=== PATIENT | male | born 1990 | race Caucasian/White ===

== ENCOUNTER 2018-02-08 08:47 | Emergency (ER) | payer MEDICAID, OTHER ==
[2018-02-08] MEDS ORDERED: NS 1,000 ML IV ONE (09:49)
--- NOTE | 2018-02-08 09:54 | EDPHY ---
H & P Time Seen by Provider: 02/08/18 09:14 HPI/ROS: CHIEF COMPLAINT: Flank pain, vomiting, urinary retention HISTORY OF PRESENT ILLNESS: 27-year-old male presents to the emergency department with left flank pain that began abruptly earlier this morning. The patient initially thought that it was more of a muscular type spasm and his girlfriend who is at bedside was trying to massage the area which made the pain acutely worse. He describes it as a sharp pain. He began vomiting. He felt like he was going to pass out. He was then having some pain in his left lower abdomen. He denies radicular symptoms in his lower legs. Denies testicular pain. He states the has not urinated today which is unusual for him. No fevers or chills. No reported trauma. No chest pain or difficulty breathing. His pain is worse with movement. REVIEW OF SYSTEMS: Constitutional: No fever, no chills. Eyes: No double or blurry vision. ENT: No sore throat. Respiratory: No cough, no shortness of breath. Cardiac: No chest pain. Gastrointestinal: Vomiting, abdominal pain as above. No diarrhea. Genitourinary: No dysuria. Musculoskeletal: Left flank pain. No neck pain. Skin: No rashes. Neurological: No headache. Past Medical/Surgical History: PTSD, traumatic brain injury, multiple concussions, epilepsy Social History: Single Smoking Status: Never smoked Physical Exam: General Appearance: Alert, no distress. Eyes: Pupils equal and round. Extraocular motions are all intact. ENT: Mouth: Mucous membranes moist. Respiratory: No wheezing, rhonchi, or rales, lungs are clear to auscultation. Cardiovascular: Regular rate and rhythm. Gastrointestinal: Abdomen is soft. He has tenderness with palpation in the left lower quadrant. There is no masses, rebound or guarding noted. Positive CVA tenderness on the left, none on the right. Neurological: Alert and oriented x 3, cranial nerves II through XII grossly intact Skin: Warm and dry, no rashes. Musculoskeletal: Nontender to palpate along the cervical, thoracic or lumbar spine. Neck is supple. Extremities: Full range of motion and no peripheral edema. Straight leg raise is negative bilaterally. He is able to flex his knees towards his chest without difficulty. He has pain with trying to sit up in bed and trying to roll over to his right side. Psychiatric: Patient is oriented X 3, there is no agitation. Constitutional: Initial Vital Signs Temperature (C) 36.5 C 02/08/18 09:06 Heart Rate 95 02/08/18 09:06 Respiratory Rate 16 02/08/18 09:06 Blood Pressure 114/84 H 02/08/18 09:06 O2 Sat (%) 98 02/08/18 09:06 O2 Delivery Mode Room Air O2 (L/minute) 36.5 Allergies/Adverse Reactions: cephalexin [From Keflex] Allergy (Verified 02/08/18 09:05) Home Medications: Medication Instructions Recorded Diazepam [Valium] 5 mg PO TIDPRN PRN #11 tab 02/08/18 Ibuprofen 600 mg PO TID PRN #30 tablet 02/08/18 Lamotrigine 02/08/18 VYVANSE 02/08/18 Wellbutrin Xl 02/08/18 Medical Decision Making ED Course/Re-evaluation: 27-year-old male presents to the emergency department with with left flank and left low back pain. Patient's pain is clearly worse with movement. He does have pain with palpation to the left flank. Laboratory studies reveal slightly elevated white blood cell count of over 11, 000. Chemistries were all unremarkable. Urinalysis reveals no signs of infection. Patient was given 1 L of IV normal saline, 30 mg of IV Toradol and 5 mg of IV Valium. He was feeling much better. He can move around much more comfortably. His pain had greatly improved. His abdominal pain had also resolved. I offered imaging studies, however the patient declined. I think this is reasonable since he improved. The patient was encouraged to have close follow-up with primary care provider. Differential Diagnosis: Back pain including but not limited to muscular pain, herniated disc, spine fracture, intra-abdominal causes and urinary tract infection. - Data Points Laboratory Results: Laboratory Results 02/08/18 10:15 02/08/18 10:15 02/08/18 02/08/18 02/08/18 10:26 10:15 10:15 WBC 11.12 10^3/uL H 10^3/uL (3.80-9.50) RBC 5.58 10^6/uL 10^6/uL (4.40-6.38) Hgb 16.4 g/dL g/dL (13.7-17.5) Hct 47.2 % % (40.0-51.0) MCV 84.6 fL fL (81.5-99.8) MCH 29.4 pg pg (27.9-34.1) MCHC 34.7 g/dL g/dL (32.4-36.7) RDW 12.3 % % (11.5-15.2) Plt Count 351 10^3/uL 10^3/uL (150-400) MPV 9.7 fL fL (8.7-11.7) Neut % (Auto) 64.7 % % (39.3-74.2) Lymph % (Auto) 19.6 % % (15.0-45.0) [place] % (Auto) 9.4 % % (4.5-13.0) Eos % (Auto) 5.2 % % (0.6-7.6) Baso % (Auto) 0.5 % % (0.3-1.7) Nucleat RBC Rel Count 0.0 % % (0.0-0.2) Absolute Neuts (auto) 7.18 10^3/uL H 10^3/uL (1.70-6.50) Absolute Lymphs (auto) 2.18 10^3/uL 10^3/uL (1.00-3.00) Absolute Monos (auto) 1.05 10^3/uL H 10^3/uL (0.30-0.80) Absolute Eos (auto) 0.58 10^3/uL H 10^3/uL (0.03-0.40) Absolute Basos (auto) 0.06 10^3/uL 10^3/uL (0.02-0.10) Absolute Nucleated RBC 0.00 10^3/uL 10^3/uL (0-0.01) Immature Gran % 0.6 % % (0.0-1.1) Immature Gran # 0.07 10^3/uL 10^3/uL (0.00-0.10) Sodium 138 mEq/L mEq/L (135-145) Potassium 4.8 mEq/L mEq/L (3.5-5.2) Chloride 102 mEq/L mEq/L (97-110) Carbon Dioxide 24 mEq/l mEq/l (22-31) Anion Gap 12 mEq/L mEq/L (8-16) BUN 14 mg/dL mg/dL (7-23) Creatinine 1.1 mg/dL mg/dL (0.7-1.3) Estimated GFR > 60 Glucose 99 mg/dL mg/dL (70-100) Calcium 9.2 mg/dL mg/dL (8.5-10.4) Urine Color YELLOW Urine Appearance CLEAR Urine pH 6.0 (5.0-7.5) Ur Specific [place] 1.013 (1.002-1.030) Urine Protein NEGATIVE (NEGATIVE) Urine Ketones NEGATIVE (NEGATIVE) Urine Blood NEGATIVE (NEGATIVE) Urine Nitrate NEGATIVE (NEGATIVE) Urine Bilirubin NEGATIVE (NEGATIVE) Urine Urobilinogen NEGATIVE EU EU (0.2-1.0) Ur Leukocyte Esterase NEGATIVE (NEGATIVE) Urine RBC 1-3 /hpf /hpf (0-3) Urine WBC 1-3 /hpf /hpf (0-3) Ur Epithelial Cells NONE SEEN /lpf /lpf (NONE-1+) Urine Glucose NEGATIVE (NEGATIVE) Medications Given: Discontinued Medications Diazepam (Valium) 5 mg IVP EDNOW ONE Stop: 02/08/18 10:46 Last Admin: 02/08/18 10:57 Dose: 5 mg Sodium Chloride (Ns) 1,000 mls @ 0 mls/hr IV ONCE ONE PRN Reason: Wide Open Stop: 02/08/18 09:50 Last Admin: 02/08/18 10:29 Dose: 1,000 mls Ketorolac Tromethamine (Toradol) 30 mg IVP EDNOW ONE Stop: 02/08/18 10:45 Last Admin: 02/08/18 10:55 Dose: 30 mg Departure - Departure Disposition: Home, Routine, Self-Care Clinical Impression: Left flank pain Back pain Qualifiers: Back pain location: low back pain Chronicity: acute Back pain laterality: left Sciatica presence: without sciatica Qualified Code(s): M54.5 - Low back pain Condition: Good Instructions: Acute Low Back Pain (ED), Flank Pain (ED) Additional Instructions: Ibuprofen 600mg every 8 hr as needed for pain and spasm. You should not take any additional ibuprofen until this evening since your given IV Toradol in the emergency department. Valium as needed for muscular spasm. Gentle stretching, warm moist compresses as discussed. Return to the emergency department if you developed increasing pain, shortness of breath, or if you feel worse in any way. Referrals: [facility],. [Clinic] - As per Instructions Prescriptions: Diazepam [Valium] 5 mg PO TIDPRN PRN #11 tab PRN Reason: Spasms Ibuprofen 600 mg PO TID PRN #30 tablet PRN Reason: P.r.n. Pain
[2018-02-08 10:30] LABS: PLATELET COUNT 351 10^3/uL (150-400)
[2018-02-08] MEDS ORDERED: KETOROLAC 30 MG/1 ML SDV IVP ONE (10:44)
[2018-02-08] MEDS ORDERED: DIAZEPAM 5 MG/ML 1 ML SYR IVP ONE (10:45)
[2018-02-08 12:24] VITALS: BP 124/75
== END 2018-02-08 12:27 | disposition home or self-care (01) ==
DX: R10.9 Unspecified abdominal pain (principal); M54.5 Low back pain; R11.10 Vomiting, unspecified
CPT/HCPCS: 96374; J1885; J3360

== ENCOUNTER → 2018-11-05 | Outpatient (CLI) | payer MEDICAID ==
--- NOTE | 2018-11-05 14:09 | CPEEG ---
[f rep st] ELECTROENCEPHALOGRAM 4- HOUR VIDEO EEG DATE OF STUDY: 11/05/2018 INTERPRETATION: This 4-hour video EEG recording is abnormal due to the presence of generalized atypical spike and wave discharges and generalized polyspike and wave discharges. 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 During the video EEG monitoring session, the patient did not have any clinical events. REPORT: This 4-hour video EEG contains 10 Hz alpha activity over the posterior head regions. The primary feature of this study was the presence of atypical generalized spike wave discharges and generalized polyspike and wave discharges. These were present at rest and there was additional activation with hyperventilation and with photic stimulation at 25 and 50 Hz ( photoparoxysmal response). The patient became drowsy and fell asleep during the study. During drowsiness and sleep, there was increased activation of generalized spike and wave discharges and generalized polyspike and wave discharges. The patient did not have any clinical events during the video EEG monitoring session. /[id number]/MODL MTDD
== END ==
LOC: FCPNEURO 07:42
PROVIDERS: ATTEND Psychiatry & Neurology Neurology
DX: G40.909 Epilepsy, unspecified, not intractable, without status epilepticus (principal)